=== PATIENT | female | born 1960 | race Two or more races ===

== ENCOUNTER → 2017-04-11 | Emergency (ER) | payer OTHER ==
[~2017-04-11] VITALS: Ht 157.5 cm; Wt 61.2 kg
[~2017-04-11] MED LIST: BENICAR40 MG; SYNTHROID100 MCG
== END | disposition home or self-care (01) ==
LOC: ER 19:24
DX: S60.211A Contusion of right wrist, initial encounter (principal); W18.39XA Other fall on same level, initial encounter; Y93.89 Activity, other specified; Y92.098 Other place in other non-institutional residence as the place of occurrence of the external cause; Y99.8 Other external cause status

== ENCOUNTER 2017-04-13 10:12 | Emergency (ER) | payer OTHER | END 2017-04-13 19:34 | disposition home or self-care (01) | LOC: ER 10:12 | DX: K29.70 Gastritis, unspecified, without bleeding (principal) ==